=== PATIENT | female | born 1960 | race Caucasian/White ===

== ENCOUNTER 2017-03-16 08:51 | Day surgery (SDC) | payer OTHER ==
[~2017-03-16] VITALS: Ht 152.4 cm; Wt 67.0 kg
[2017-03-16 09:43] VITALS: BP 142/80
[2017-03-16] MEDS ORDERED: LACTATED RINGERS 1,000 ML IV SCH (09:46)
[2017-03-16] MEDS ORDERED: LIDOCAINE 1%, 2ML ONE (09:46)
[2017-03-16] MEDS ORDERED: LOVA10TA PO (10:03)
[2017-03-16] MEDS ORDERED: LEVOTHYROXINE PO (10:03)
[2017-03-16] MEDS ORDERED: ESCI20TA10 PO (10:03)
[2017-03-16] MEDS ORDERED: VITAMIN B12 PO (10:03)
[2017-03-16] MEDS ORDERED: MULTIVITAMIN PO (10:03)
[2017-03-16] MEDS ORDERED: ASPI-496 PO (10:03)
[2017-03-16] MEDS ORDERED: EPINEPHRINE 1 MG/ML, 1ML ONE (10:46)
[2017-03-16] MEDS ORDERED: BUPIVACAINE/PF 0.5% ONE (10:46)
[2017-03-16] MEDS ORDERED: SCOPOLAMINE PATCH, 1.5MG PATCH.TD72 TD ONE ×2 (14:42→15:00)
[2017-03-16] MEDS ORDERED: FENTANYL PF 250 MCG/5ML ONE (14:45)
[2017-03-16] MEDS ORDERED: MIDAZOLAM 1 MG/ML, 2ML ONE (14:45)
[2017-03-16] MEDS ORDERED: DEXAMETHASONE 4 MG/ML, 1ML ONE (14:50)
[2017-03-16] MEDS ORDERED: LIDOCAINE 1%, 20ML ONE (14:50)
[2017-03-16] MEDS ORDERED: CEFAZOLIN 1,000 MG ONE (14:50)
[2017-03-16] MEDS ORDERED: ONDANSETRON 2MG/ML, 2ML ONE (14:50)
[2017-03-16] MEDS ORDERED: PROPOFOL 10 MG/ML, 50ML ONE (14:50)
[2017-03-16] MEDS ORDERED: EPHEDRINE 50 MG/ML, 1ML ONE (14:50)
[2017-03-16] MEDS ORDERED: PROPOFOL 10 MG/ML, 20ML ONE (14:50)
[2017-03-16] MEDS ORDERED: BUPIVACAINE/PF-EPI 0.5% 1:200K IM ONE (15:15)
[2017-03-16] MEDS ORDERED: ACETAMINOPHEN 325 MG TABLET PO PRN (15:30)
[2017-03-16] MEDS ORDERED: FENTANYL PF 100 MCG/2ML IV PRN (15:30)
[2017-03-16] MEDS ORDERED: METOCLOPRAMIDE 5 MG/ML, 2ML IV PRN (15:30)
[2017-03-16] MEDS ORDERED: MEPERIDINE/PF 25MG/0.5ML IVPush PRN (15:30)
[2017-03-16] MEDS ORDERED: KETOROLAC 30 MG/1 ML IV PRN (15:30)
[2017-03-16] MEDS ORDERED: PROMETHAZINE 25 MG/ML, 1ML IV PRN (15:30)
[2017-03-16] MEDS ORDERED: HYDROmorphone 1 MG/ML, 1ML IV PRN (15:30)
[2017-03-16] MEDS ORDERED: KETOROLAC 30 MG/1 ML ONE (16:07)
== END 2017-03-16 17:00 ==
LOC: OUT 08:51
PROVIDERS: ATTEND Orthopaedic Surgery
DX: T84.84XA Pain due to internal orthopedic prosthetic devices, implants and grafts, initial encounter (principal); Y83.8 Other surgical procedures as the cause of abnormal reaction of the patient, or of later complication, without mention of misadventure at the time of the procedure; Y92.89 Other specified places as the place of occurrence of the external cause; K21.9 Gastro-esophageal reflux disease without esophagitis; E78.5 Hyperlipidemia, unspecified; E03.9 Hypothyroidism, unspecified; Z88.8 Allergy status to other drugs, medicaments and biological substances; Z91.09 Other allergy status, other than to drugs and biological substances
CPT/HCPCS: 20680; 73600; 76000; J0171; J0690; J1100; J1885; J2250; J2405; J2704; J3010; J3490; J7120

== ENCOUNTER 2019-02-20 11:16 | Outpatient (CLI) | payer OTHER ==
[~2019-02-20 11:16] MED LIST: ASPI-496 PO; ESCI20TA10 PO; LEVOTHYROXINE PO; LOVA10TA PO; MULTIVITAMIN PO; VITAMIN B12 PO
[2019-02-20] MEDS ORDERED: MEPE100T14 PO (11:45)
[2019-02-20] MEDS ORDERED: CALC-451 PO (11:45)
[2019-02-20] MEDS ORDERED: CYAN50008 PO (11:45)
[2019-02-20] MEDS ORDERED: MULT-658 PO (11:45)
[2019-02-20] MEDS ORDERED: AMIT10TA PO (11:45)
[2019-02-20] MEDS ORDERED: LEVO50TA5 PO (11:45)
[2019-02-20] MEDS ORDERED: UBID100C41 PO (11:45)
[2019-02-20] MEDS ORDERED: LEVO500C3 PO (11:45)
[2019-02-20] MEDS ORDERED: ASPI-496 PO (11:45)
[2019-02-20 12:10] LABS: MICROSCOPIC INDICATED
== END 2019-02-20 23:59 | disposition home or self-care (01) ==
LOC: STAR 11:16
PROVIDERS: ATTEND Urology
DX: Z01.818 Encounter for other preprocedural examination (principal); R31.0 Gross hematuria
CPT/HCPCS: 81001; 87086; 93005